=== PATIENT | female | born 1960 | race Caucasian/White ===

== ENCOUNTER 2019-08-05 16:52 | Emergency (ER) | payer BC, OTHER ==
[~2019-08-05] VITALS: Ht 172.7 cm; Wt 56.7 kg
[2019-08-05 17:49] LABS: ABSOLUTE NEUTROPHILS 3.8 thou/uL (1.4-8.2); BASOPHILS 1.5 % (0.0-2.0); EOSINOPHILS 2.9 % (0.0-3.0); HEMATOCRIT 42.7 % (37.0-47.0); LYMPHOCYTES 27.6 % (24.0-44.0); MCH 27.7 pg (26.0-34.0); MCHC 32.7 g/dL (28.0-37.0); MCV 84.8 fL (80.0-100.0); PLATELET COUNT 267 thou/uL (150-400); RBC 5.04 mil/uL (4.20-5.00); RDW 13.2 % (10.5-14.5); WBC 5.9 thou/uL (4.0-11.0)
[2019-08-05 17:55] LABS: ANION GAP 10 mmol/L (7-16); BUN 11 mg/dL (7-18); CALCIUM 10.2 mg/dL (8.5-10.1); CHLORIDE 98 mmol/L (98-107); CO2 27 mmol/L (21-32); CREATININE 1.1 mg/dL (0.6-1.0); GLUCOSE 124 mg/dL (74-106); POTASSIUM 3.1 mmol/L (3.5-5.1); SODIUM 135 mmol/L (136-145)
[2019-08-05 18:06] LABS: ALBUMIN 4.9 g/dL (3.4-5.0); LIPASE 176 U/L (73-393); SGOT 30 U/L (15-37); SGPT 29 U/L (30-65); TOTAL BILIRUBIN 0.4 mg/dL (<0.1-1.0); TOTAL PROTEIN 8.6 g/dL (6.4-8.2); TROPONIN-I <0.06 ng/mL (<0.06)
[2019-08-05] MEDS ORDERED: POTASSIUM20 PO (19:33)
[2019-08-05] MEDS ORDERED: ZOFRAN ODT4 MG PO (19:33)
[2019-08-05 20:50] VITALS: BP 131/85
--- NOTE | 2019-08-07 14:51 | EKG ---
[place] [address] [facility] [place] [address] ELECTROCARDIOGRAM REPORT Name: LEI CAMPBELL Room #: [facility]P [id number] Admission: 08/05/19 Attend Phys: Discharge: 08/05/19 Date of : 56 Report #: [id number] THIS REPORT FOR: //name// [facility] ED Test Date: 2019-08-05 Test Time: 17:52:44 Pat Name: LEI CAMPBELL Department: Room: Gender: F Senior Lead Project Manager: ALBA : 1960 Requested By: Inder Lal Order Number: [id number] MD: Derian Alatorre Measurements Intervals Dawson Rate: 75 P: 95 TX: 53 QRS: 95 QRSD: 84 T: 102 QT: 421 QTc: 471 Interpretive Statements Sinus rhythm Short [place] interval Anteroseptal infarct, age indeterminate No previous ECG available for comparison Electronically Signed On 08-07-2019 14:51:01 OFFICE ADMINISTRATOR by Derian Alatorre [email or web address] <ELECTRONICALLY SIGNED> By: Derian Alatorre MD 08/07/19 1451 1751 51 MD STEPHEN Leung
== END 2019-08-05 20:50 | disposition home or self-care (01) ==
LOC: ER 16:52
PROVIDERS: Physician Assistant
DX: E87.6 Hypokalemia (principal); R11.2 Nausea with vomiting, unspecified; R42 Dizziness and giddiness; E03.9 Hypothyroidism, unspecified; Z88.6 Allergy status to analgesic agent; Z88.5 Allergy status to narcotic agent; Z88.2 Allergy status to sulfonamides